=== PATIENT | male | born 2000 | race African-American/Black ===

== ENCOUNTER 2021-12-03 07:15 | Emergency (ER) | payer SELFPAY ==
[~2021-12-03] VITALS: Ht 177.8 cm; Wt 98.8 kg
--- NOTE | 2021-12-03 07:24 | PHYS DOC ---
Past History Past Medical History: No Pertinent History Past Surgical History: No Surgical History Smoking: Cigarettes Alcohol Use: Occasionally Drug Use: Marijuana Adult General HPI HPI Patient is a 21-year-old male presenting for stomach pain. This is a chronic issue. Reports certain foods make it better. Vaping, marijuana, alcohol, fatty f oods and caffeinated beverages make worse. Pain is cramping and sometimes sharp localized to epigastric and left upper quadrant regions without radiation. Timing is waxing and waning without known onset. States he takes 800 to 1000 mg of ibuprofen several times a day in attempt to alleviate the pain. He has no primary care physician and has not been seen for this problem in outpatient setting. No prior abdominal surgeries or other noteworthy conditions Review of Systems Review of Systems Fourteen body systems of review of systems have been reviewed. See HPI for pertinent positives and negative responses, other [place] all other systems are negative, non-pertinent or non-contributory Physical Exam Physical Exam Constitutional: Well developed, well nourished, no acute distress, non-toxic appearance. HENT: Normocephalic, atraumatic, bilateral external ears normal, oropharynx moist, no oral exudates, nose normal. Eyes: PERRLA, EOMI, conjunctiva normal, no discharge. Neck: Normal range of motion, no tenderness, supple, no stridor. Cardiovascular: Heart rate regular, sinus rhythm, no murmurs rubs or gallops Lungs & Thorax: Bilateral breath sounds clear to auscultation Abdomen: Bowel sounds normal, soft, generalized epigastric tenderness to palpation without any guarding or rebound, no masses, no pulsatile masses. Nonsurgical abdomen, no peritoneal signs Skin: Warm, dry, no erythema, no rash. Back: No tenderness, no CVA tenderness. Extremities: No tenderness, no cyanosis, no clubbing, ROM intact, no edema. Neurologic: Alert and oriented X 3, grossly normal motor & sensory function, no focal deficits noted. Psychologic: Affect normal, judgement normal, mood normal. Current Patient Data Vital Signs Vital Signs Date Time Temp Pulse Resp B/P (MAP) Pulse Ox O2 Delivery O2 Flow Rate FiO2 12/03/21 07:37 97.9 50 16 150/88 (108) 99 Vital Signs Date Time Temp Pulse Resp B/P (MAP) Pulse Ox O2 Delivery O2 Flow Rate FiO2 12/03/21 07:37 97.9 50 16 150/88 (108) 99 EKG EKG [] Radiology/Procedures Radiology/Procedures [] Heart Score C/O Chest Pain: No Risk Factors: Risk Factors: DM, Current or recent (<one month) smoker, HTN, HLP, family history of CAD, obesity. Risk Scores: Risk Factors: DM, Current or recent (<one month) smoker, HTN, HLP, family history of CAD, obesity. Course & Med Decision Making Course & Med Decision Making ABCs unremarkable HPI and comprehensive physical exam nonconcerning for any emergent or surgical issues No indication for further diagnostic ER workup, intervention, or hospitalization at this time Patient likely suffering from GERD/PUD. Educated patient extensively on modifiable risk factors and need to start proton pump inhibitor with close outpatient follow-up. Dragon Disclaimer Dragon Disclaimer This electronic medical record was generated, in whole or in part, using a voice recognition dictation system. Departure Departure: Impression: Primary Impression: Abdominal pain Additional Impression: GERD (gastroesophageal reflux disease) Disposition: HOME / SELF CARE / HOMELESS Condition: STABLE Referrals: PCP,FAN (PCP) Patient Instructions: Diet for Gastroesophageal Reflux Disease, Adult, Gastroesophageal Reflux Disease, Adult, Ceon-um-Nsae Additional Instructions: You were seen for abdominal pain. We are putting you on a medication to reduce your stomach acid levels. You should avoid alcohol, spicy foods, or NSAIDs as these can exacerbate your symptoms. You should follow up with the medicine clinic or your primary medical doctor for further evaluation and treatment. Return to the ED if you develop worsening pain, fever, black or bloody stools, or any other new or concerning symptoms. The medicine we started you on can take a few days to work fully. Scripts Pantoprazole Sodium (PROTONIX) 40 Mg Tablet. 1 TAB PO DAILY for GERD, #30 TAB 0 Refills Prov: FANY ATKINS DO 12/03/21 Problem Qualifiers FANY ATKINS DO Dec 03, 2021 07:24
[2021-12-03 07:37] VITALS: BP 150/88
[2021-12-03] MEDS ORDERED: PANTOPRAZOLE 40 MG TABLET. PO ONE (07:45)
[2021-12-03] MEDS ORDERED: PANT40TA3 PO (07:45)
[2021-12-03] MEDS ORDERED: LIDO:MAALOX 1:1 20 ML SINGLE DOSE. PO ONE (07:45)
== END 2021-12-03 08:05 | disposition home or self-care (01) ==
LOC: ER 07:15
DX: K21.9 Gastro-esophageal reflux disease without esophagitis (principal); F17.210 Nicotine dependence, cigarettes, uncomplicated
CPT/HCPCS: 99283

== ENCOUNTER 2022-03-12 19:40 | Emergency (ER) | payer SELFPAY ==
[~2022-03-12] VITALS: Ht 177.8 cm; Wt 98.8 kg
[~2022-03-12 19:40] MED LIST: PANT40TA3 PO
--- NOTE | 2022-03-12 20:13 | PHYS DOC ---
Past History Past Medical History: No Pertinent History Past Surgical History: No Surgical History Smoking: Cigarettes Alcohol Use: None Drug Use: Marijuana General Adult EDM: Chief Complaint: ABDOMINAL PAIN HPI: HPI: Patient is a 21-year-old male who presents with a brief episode of epigastric pain, radiating briefly to his chest, reported that it felt like a burning sensation. He reports he has had these exact same symptoms many times, mostly occurring while he works. Symptoms began several hours ago, have been resolved after taking omeprazole. He has a history of GERD, is reportedly prescribed omeprazole, though he is now currently out of this medication after taking today's dose. He denies any current pain of any kind. He denies any associated dyspnea, pleuritic pain, cough, dizziness, diaphoresis, nausea, vomiting, diarrhea, constipation. He denies back or flank pain. Denies urinary symptoms. Denies lower abdominal pain. He denies hemoptysis. He denies fevers or chills. He smokes tobacco, smokes marijuana, denies use of daily NSAIDs. Review of Systems: Review of Systems: Constitutional: Denies fever or chills Eyes: Denies change in visual acuity HENT: Denies nasal congestion or sore throat Respiratory: Denies cough or shortness of breath Cardiovascular: Brief lower chest pain radiating from his epigastrium, denies chest pressure, no active chest pain. GI: Brief epigastric discomfort, now resolved. No nausea, vomiting, diarrhea, constipation reported. : Denies urinary symptoms Musculoskeletal: Denies back pain or joint pain Integument: Denies rash Neurologic: Denies headache, focal weakness or sensory changes Psychiatric: Denies depression or anxiety Allergies: Allergies: Allergies Coded Allergies Type Severity Reaction Last Updated Verified No Known Drug Allergies 12/03/21 No Physical Exam: PE: Constitutional: Well developed, well nourished, no acute distress, non-toxic appearance. [] HENT: Normocephalic, atraumatic Eyes: Sclera are anicteric, conjunctive are normal Neck: Normal range of motion, no tenderness, supple, no stridor. Trachea is midline, no JVD Cardiovascular:Heart rate regular rhythm, was 2 radial and +2 posterior tibial pulses bilaterally Lungs & Thorax: Bilateral breath sounds clear to auscultation, no rales, rhonchi or wheezes. No retractions. No respiratory distress Abdomen: Abdomen is soft, obese, nondistended, nontender to palpation. No palpable masses organomegaly. No palpable pulsatile mass. No CVA tenderness. No flank abdominal ecchymosis Skin: Warm, dry, no erythema, no rash. No jaundice. Back: No tenderness, no CVA tenderness. [] Extremities: No tenderness, no cyanosis, no clubbing, ROM intact, no edema. No calf tenderness. Neurologic: Alert and oriented X 3, normal motor function, normal sensory function, no focal deficits noted. [] Psychologic: Affect normal, judgement normal, mood normal. [] Current Patient Data: Vital Signs: Vital Signs Date Time Temp Pulse Resp B/P (MAP) Pulse Ox O2 Delivery O2 Flow Rate FiO2 03/12/22 19:40 98.9 58 18 148/76 (100) 96 EKG: EKG: EKG is intepreted at 2012 Rhythm is sinus Rate is 52 bpm [place] is normal No STEMI No ischemia Radiology/Procedures: Radiology/Procedures: [] Heart Score: C/O Chest Pain: Yes HEART Score for Chest Pain: HEART Score for Chest Pain Response (Comments) Value History Slighlty/Non-Suspicious 0 ECG Normal 0 Total 0 Risk Factors: Risk Factors: DM, Current or recent (<one month) smoker, HTN, HLP, family history of CAD, obesity. Risk Scores: Score 0 - 3: 2.5% MACE over next 6 weeks - Discharge Home Score 4 - 6: 20.3% MACE over next 6 weeks - Admit for Clinical Observation Score 7 - 10: 72.7% MACE over next 6 weeks - Early Invasive Strategies Course & Med Decision Making: Course & Med Decision Making Patient is asymptomatic, denies any pain or discomfort at all. His symptoms appear to be most consistent with likely reflux episode. EKG is nonischemic. He has no other associated symptoms concerning for ACS or acute life-threatening process. He is a benign, nonsurgical abdominal exam. I discussed the findings, differential diagnosis and plan of care with him. Medication for further invasive exams, emergent imaging at this time. I did prescribe more omeprazole for him to go home with. I discussed that I recommend cessation of marijuana and alcohol, home care instructions dietary instructions are provided. I gave him information to follow-up with a primary care physician. He verbalizes understanding. Johanna Disclaimer: Johanna Disclaimer: This electronic medical record was generated, in whole or in part, using a voice recognition dictation system. Departure Departure: Impression: Primary Impression: GERD (gastroesophageal reflux disease) Disposition: HOME / SELF CARE / HOMELESS Condition: STABLE Referrals: PCPFAN (PCP) Patient Instructions: Diet for Gastroesophageal Reflux Disease, Adult, Gastroesophageal Reflux Disease, Adult Additional Instructions: Take the medication as directed. Make sure to avoid spicy, greasy, very salty foods. Avoid eating late at night before going to sleep. Try to avoid alcohol, cigarettes and marijuana. All of these things can worsen acid reflux. Return for severe chest pain, shortness of breath, vomiting, severe abdominal pain, vomiting blood, dehydration or other concerns. Follow-up with your primary care physician. Scripts Omeprazole (OMEPRAZOLE) 20 Mg Capsule. 1 CAP PO DAILY for gerd, #30 CAP 1 Refill Prov: ESTEFANI RG DO 03/12/22 ESTEFANI RG DO March 12, 2022 20:13
--- NOTE | 2022-03-12 20:25 | EKG ---
[address] [address] Test Date: 2022-03-12 Test Time: 20:10:21 Pat Name: RONY MOREIRA Department: Room: Gender: M Interventional Radiologist: NEVA : 2000 Requested By: ESTEFANI RG Order Number: [id number] Reading MD: Savage Agrawal MD Measurements Intervals [place] Rate: 52 P: 30 UT: 160 QRS: 79 QRSD: 90 T: 22 QT: 390 QTc: 364 Interpretive Statements SINUS RHYTHM Electronically Signed On 03-16-2022 9:03:30 CDT by Savage Agrawal MD
[2022-03-12] MEDS ORDERED: OMEP20CA16 PO (20:43)
[2022-03-12 20:48] VITALS: BP 97/57
== END 2022-03-12 20:48 | disposition home or self-care (01) ==
LOC: ER 19:40
DX: K21.9 Gastro-esophageal reflux disease without esophagitis (principal); F17.210 Nicotine dependence, cigarettes, uncomplicated
CPT/HCPCS: 93005; 99283